=== PATIENT | male | born 1935 | race Caucasian/White ===

== ENCOUNTER 2018-09-28 14:05 | Inpatient (IN) | payer OTHER, MEDICARE ==
[2018-09-28] MEDS: ACETAMINOPHEN 325 MG TAB PO (14:53)
[2018-09-28 15:17] LABS: ADD MAN DIFF? NO
[2018-09-28 15:19] LABS: BASOPHIL # 0.1 10^3/ul (0.0-0.1); BASOPHILS % 0.6 % (0.0-2.0); EOSINOPHILS # 0.1 10^3/ul (0.0-0.5); EOSINOPHILS % 1.3 % (0.0-7.0); HEMATOCRIT 41.3 % (42.0-52.0); HEMOGLOBIN 13.1 g/dl (14.0-18.0); LYMPHOCYTES # 0.9 10^3/ul (0.8-2.9); LYMPHOCYTES % 10.3 % (15.0-51.0); MEAN CORPUSCULAR HEMOGLOBIN 27.2 pg (29.0-33.0); MEAN CORPUSCULAR HGB CONC 31.7 g/dl (32.0-37.0); MEAN CORPUSCULAR VOLUME 85.7 fl (82.0-101.0); MEAN PLATELET VOLUME 9.8 fl (7.4-10.4); MONOCYTE # 0.8 10^3/ul (0.3-0.9); MONOCYTES % 9.3 % (0.0-11.0); NEUTROPHIL # 6.7 10^3/ul (1.6-7.5); NEUTROPHILS % 78.1 % (39.0-77.0); PLATELET COUNT 201 10^3/UL (140-415); RED BLOOD COUNT 4.82 10^6/ul (4.70-6.10); RED CELL DISTRIBUTION WIDTH 14.1 % (11.5-14.5)
[2018-09-28 15:19] LABS: WHITE BLOOD COUNT 8.5 10^3/ul (4.8-10.8)
[2018-09-28] MEDS: PIPER-TAZO 3.375 GM IV (PMX) 100 ML IVPB (15:42)
[2018-09-28 15:45] LABS: ANION GAP 9 (5-13); BLOOD UREA NITROGEN 18 mg/dl (7-20); CALCIUM 9.2 mg/dl (8.4-10.2); CARBON DIOXIDE 27 mmol/L (21-31); CHLORIDE 104 mmol/L (97-110); CREATININE 1.05 mg/dl (0.61-1.24); GLUCOSE 146 mg/dl (70-220); POTASSIUM 3.9 mmol/L (3.5-5.1); SODIUM 140 mmol/L (135-144)
[2018-09-28 15:56] LABS: TROPONIN-I 0.015 ng/ml (0.000-0.120)
[2018-09-28] MEDS ORDERED: ONDANSETRON 4 MG INJ IV ×2 (16:00→18:00)
[2018-09-28] MEDS ORDERED: ACETAMINOPHEN 325 MG TAB PO (16:00)
[2018-09-28] MEDS: VANCOMYCIN 1 GM (PMX) 250 ML IVPB (16:10)
[2018-09-28] MEDS ORDERED: NACL 0.9% 3 ML SYG IV (18:00)
[2018-09-28] MEDS ORDERED: VANCOMYCIN IV PER PHARMACY XX (18:30)
[2018-09-28] MEDS ORDERED: VANCOMYCIN HCL 1.25 GM in SOD CHLORIDE 0.9% 250 ML IVPB (21:00)
[2018-09-28] MEDS: ATORVASTATIN 80 MG TAB PO (21:16)
[2018-09-28] MEDS: VANCOMYCIN 500 MG (PMX) 100 ML IVPB (21:17)
[2018-09-28] MEDS: HEPARIN 5,000 UNIT/1 ML VIAL SC (21:28)
[2018-09-28] MEDS: SACUBITRIL/VALSARTAN (49mg-51mg) TABLET PO (22:12)
[2018-09-28 22:48] LABS: CREATINE KINASE 110 IU/L (23-200)
[2018-09-28 23:01] LABS: CK INDEX 1.8; CK-MB 2.02 ng/ml (0.0-2.4); TROPONIN-I 0.024 ng/ml (0.000-0.120)
[2018-09-29 01:40] LABS: LACTIC ACID 0.8 mmol/L (0.5-2.0)
[2018-09-29 05:13] LABS: ADD MAN DIFF? NO
[2018-09-29 05:20] LABS: BASOPHIL # 0.1 10^3/ul (0.0-0.1); EOSINOPHILS # 0.3 10^3/ul (0.0-0.5); EOSINOPHILS % 4.2 % (0.0-7.0); HEMATOCRIT 39.4 % (42.0-52.0); HEMOGLOBIN 12.4 g/dl (14.0-18.0); LYMPHOCYTES # 1.1 10^3/ul (0.8-2.9); MEAN CORPUSCULAR HEMOGLOBIN 27.3 pg (29.0-33.0); MEAN CORPUSCULAR HGB CONC 31.5 g/dl (32.0-37.0); MEAN CORPUSCULAR VOLUME 86.6 fl (82.0-101.0); MEAN PLATELET VOLUME 10.3 fl (7.4-10.4); MONOCYTE # 0.8 10^3/ul (0.3-0.9); MONOCYTES % 10.9 % (0.0-11.0); NEUTROPHIL # 4.7 10^3/ul (1.6-7.5); NEUTROPHILS % 67.8 % (39.0-77.0); PLATELET COUNT 202 10^3/UL (140-415); RED BLOOD COUNT 4.55 10^6/ul (4.70-6.10); RED CELL DISTRIBUTION WIDTH 14.2 % (11.5-14.5)
[2018-09-29 05:20] LABS: WHITE BLOOD COUNT 6.9 10^3/ul (4.8-10.8)
[2018-09-29 05:31] LABS: HEMOGLOBIN A1C 6.9 % (0-5.9)
[2018-09-29 05:38] LABS: CREATINE KINASE 99 IU/L (23-200)
[2018-09-29 05:49] LABS: ALANINE AMINOTRANSFERASE 26 IU/L (13-69); ALBUMIN 3.6 g/dl (3.3-4.9); ALBUMIN/GLOBULIN RATIO 1.16; ALKALINE PHOSPHATASE 70 IU/L (42-121); ANION GAP 5 (5-13); ASPARTATE AMINO TRANSFERASE 24 IU/L (15-46); BILIRUBIN,INDIRECT 0.9 mg/dl (0-1.1); BILIRUBIN,TOTAL 0.9 mg/dl (0.2-1.3); BLOOD UREA NITROGEN 18 mg/dl (7-20); CALCIUM 9.1 mg/dl (8.4-10.2); CARBON DIOXIDE 27 mmol/L (21-31); CHLORIDE 107 mmol/L (97-110); CHOL/HDL RATIO 2.4 RATIO; CHOLESTEROL 99 mg/dl (100-200); CREATININE 1.06 mg/dl (0.61-1.24); GLUCOSE 129 mg/dl (70-220); HDL CHOLESTEROL 40 mg/dl (31-75); LDL CHOLESTEROL,CALCULATED 48 mg/dl; MAGNESIUM 2.3 mg/dl (1.7-2.5); PHOSPHORUS 4.7 mg/dl (2.5-4.9); POTASSIUM 3.9 mmol/L (3.5-5.1); SODIUM 139 mmol/L (135-144); TOTAL PROTEIN 6.7 g/dl (6.1-8.1); TRIGLYCERIDES 53 mg/dl (0-149)
[2018-09-29 05:52] LABS: CK INDEX 2.1; CK-MB 2.09 ng/ml (0.0-2.4); TROPONIN-I 0.015 ng/ml (0.000-0.120)
[2018-09-29] MEDS: HEPARIN 5,000 UNIT/1 ML VIAL SC ×3 (06:41→21:58)
[2018-09-29] MEDS: SACUBITRIL/VALSARTAN (49mg-51mg) TABLET PO ×2 (08:46→20:32)
[2018-09-29] MEDS: CLOPIDOGREL 75 MG TAB PO (08:46)
[2018-09-29] MEDS: ALBUTEROL/IPRATROPIUM (NEB) 3 ML AMP HHN (10:31)
[2018-09-29] MEDS: FUROSEMIDE 40 MG INJ IV (12:37)
[2018-09-29] MEDS: ATORVASTATIN 80 MG TAB PO (20:32)
[2018-09-29] MEDS: VANCOMYCIN HCL 1.25 GM in SOD CHLORIDE 0.9% 250 ML IVPB (20:32)
[2018-09-30] MEDS: ACETAMINOPHEN 325 MG TAB PO (03:13)
[2018-09-30] MEDS: HEPARIN 5,000 UNIT/1 ML VIAL SC ×3 (06:39→21:32)
[2018-09-30] MEDS: SACUBITRIL/VALSARTAN (49mg-51mg) TABLET PO ×2 (09:06→20:19)
[2018-09-30] MEDS: FUROSEMIDE 40 MG INJ IV (09:06)
[2018-09-30] MEDS: ATORVASTATIN 80 MG TAB PO (20:19)
[2018-09-30] MEDS: VANCOMYCIN HCL 1.25 GM in SOD CHLORIDE 0.9% 250 ML IVPB (20:19)
[2018-09-30] MEDS: COLCHICINE 0.6 MG TAB PO (20:19)
[2018-10-01] MEDS: ACETAMINOPHEN 325 MG TAB PO (05:47)
[2018-10-01] MEDS: HEPARIN 5,000 UNIT/1 ML VIAL SC ×3 (06:06→21:30)
[2018-10-01 06:08] LABS: ADD MAN DIFF? NO
[2018-10-01 06:20] LABS: WHITE BLOOD COUNT 7.7 10^3/ul (4.8-10.8)
[2018-10-01 06:20] LABS: BASOPHIL # 0.1 10^3/ul (0.0-0.1); BASOPHILS % 0.8 % (0.0-2.0); EOSINOPHILS # 0.3 10^3/ul (0.0-0.5); EOSINOPHILS % 3.4 % (0.0-7.0); HEMATOCRIT 43.2 % (42.0-52.0); HEMOGLOBIN 13.7 g/dl (14.0-18.0); LYMPHOCYTES # 1.4 10^3/ul (0.8-2.9); LYMPHOCYTES % 18.8 % (15.0-51.0); MEAN CORPUSCULAR HGB CONC 31.7 g/dl (32.0-37.0); MEAN CORPUSCULAR VOLUME 85.2 fl (82.0-101.0); MEAN PLATELET VOLUME 10.1 fl (7.4-10.4); MONOCYTE # 0.7 10^3/ul (0.3-0.9); MONOCYTES % 8.6 % (0.0-11.0); NEUTROPHIL # 5.2 10^3/ul (1.6-7.5); PLATELET COUNT 250 10^3/UL (140-415); RED BLOOD COUNT 5.07 10^6/ul (4.70-6.10)
[2018-10-01 06:30] LABS: INR 1.08; PROTIME 14.1 Sec (11.9-14.9); PT RATIO 1.1
[2018-10-01 06:52] LABS: B-TYPE NATRIURETIC PEPTIDE 1190 PG/ML (0-450)
[2018-10-01 06:57] LABS: ALANINE AMINOTRANSFERASE 31 IU/L (13-69); ALBUMIN 3.9 g/dl (3.3-4.9); ALBUMIN/GLOBULIN RATIO 1.25; ALKALINE PHOSPHATASE 82 IU/L (42-121); ANION GAP 9 (5-13); ASPARTATE AMINO TRANSFERASE 26 IU/L (15-46); BLOOD UREA NITROGEN 28 mg/dl (7-20); CARBON DIOXIDE 27 mmol/L (21-31); CHLORIDE 102 mmol/L (97-110); CREATININE 1.18 mg/dl (0.61-1.24); GLUCOSE 145 mg/dl (70-220); MAGNESIUM 2.3 mg/dl (1.7-2.5); POTASSIUM 3.5 mmol/L (3.5-5.1); SODIUM 138 mmol/L (135-144)
[2018-10-01] MEDS: COLCHICINE 0.6 MG TAB PO ×2 (08:21→20:24)
[2018-10-01] MEDS: SACUBITRIL/VALSARTAN (49mg-51mg) TABLET PO ×2 (08:22→20:24)
[2018-10-01] MEDS: FUROSEMIDE 40 MG INJ IV (08:22)
[2018-10-01] MEDS: POTASSIUM CHLORIDE (SR) 20 MEQ TAB PO (09:18)
[2018-10-01 09:45] LABS: URIC ACID 8.2 mg/dl (3.1-7.9)
[2018-10-01] MEDS: ATORVASTATIN 80 MG TAB PO (20:24)
[2018-10-02] MEDS: HEPARIN 5,000 UNIT/1 ML VIAL SC ×3 (05:14→20:12)
[2018-10-02 06:22] LABS: ADD MAN DIFF? NO
[2018-10-02 06:30] LABS: BASOPHIL # 0.1 10^3/ul (0.0-0.1); BASOPHILS % 1.3 % (0.0-2.0); EOSINOPHILS # 0.3 10^3/ul (0.0-0.5); EOSINOPHILS % 4.5 % (0.0-7.0); HEMATOCRIT 45.4 % (42.0-52.0); HEMOGLOBIN 14.2 g/dl (14.0-18.0); LYMPHOCYTES # 1.6 10^3/ul (0.8-2.9); LYMPHOCYTES % 24.5 % (15.0-51.0); MEAN CORPUSCULAR HEMOGLOBIN 26.8 pg (29.0-33.0); MEAN CORPUSCULAR HGB CONC 31.3 g/dl (32.0-37.0); MEAN CORPUSCULAR VOLUME 85.8 fl (82.0-101.0); MEAN PLATELET VOLUME 9.9 fl (7.4-10.4); MONOCYTE # 0.7 10^3/ul (0.3-0.9); MONOCYTES % 10.9 % (0.0-11.0); NEUTROPHIL # 3.7 10^3/ul (1.6-7.5); NEUTROPHILS % 58.3 % (39.0-77.0); PLATELET COUNT 266 10^3/UL (140-415); RED BLOOD COUNT 5.29 10^6/ul (4.70-6.10); RED CELL DISTRIBUTION WIDTH 14.2 % (11.5-14.5)
[2018-10-02 06:30] LABS: WHITE BLOOD COUNT 6.4 10^3/ul (4.8-10.8)
[2018-10-02 06:45] LABS: INR 1.03; PROTIME 13.6 Sec (11.9-14.9); PT RATIO 1.1
[2018-10-02] MEDS: SOD CHLORIDE 0.9% 500 ML IV (06:49)
[2018-10-02 06:56] LABS: ALANINE AMINOTRANSFERASE 34 IU/L (13-69); ALBUMIN 3.9 g/dl (3.3-4.9); ALBUMIN/GLOBULIN RATIO 1.14; ALKALINE PHOSPHATASE 85 IU/L (42-121); ANION GAP 10 (5-13); ASPARTATE AMINO TRANSFERASE 40 IU/L (15-46); BILIRUBIN,INDIRECT 0.8 mg/dl (0-1.1); BILIRUBIN,TOTAL 0.8 mg/dl (0.2-1.3); BLOOD UREA NITROGEN 30 mg/dl (7-20); CALCIUM 9.1 mg/dl (8.4-10.2); CARBON DIOXIDE 28 mmol/L (21-31); CHLORIDE 104 mmol/L (97-110); CREATININE 1.16 mg/dl (0.61-1.24); GLUCOSE 137 mg/dl (70-220); MAGNESIUM 2.5 mg/dl (1.7-2.5); POTASSIUM 4.4 mmol/L (3.5-5.1); SODIUM 142 mmol/L (135-144); TOTAL PROTEIN 7.3 g/dl (6.1-8.1)
[2018-10-02 06:57] LABS: B-TYPE NATRIURETIC PEPTIDE 774 PG/ML (0-450)
[2018-10-02 07:00] LABS: URIC ACID 9.2 mg/dl (3.1-7.9)
[2018-10-02] MEDS ORDERED: LIDOCAINE 1% (MDV) 20 ML INJ (07:07)
[2018-10-02] MEDS ORDERED: SOD CHLORIDE 0.9% 500 ML (07:07)
[2018-10-02] MEDS ORDERED: PROPOFOL 20 ML (07:22)
[2018-10-02] MEDS ORDERED: FENTAnyl 50 MCG/ML VIAL ×2 (07:22→08:54)
[2018-10-02] MEDS ORDERED: MIDAZOLAM 1 MG/ML 2 ML INJ ×2 (07:22→08:55)
[2018-10-02] MEDS: LIDOCAINE 1%/EPI 30 ML INJ INJ (07:30)
[2018-10-02] MEDS: POLYMYXIN/BACITRACIN 1L IRRIG IRR (07:30)
[2018-10-02] MEDS: CEFAZOLIN 2 GM/50 ML (PMX) 50 ML IVPB (07:30)
[2018-10-02] MEDS ORDERED: IODIXANOL LOCM 50 ML BTL ×2 (07:40→08:39)
[2018-10-02] MEDS ORDERED: MIDAZOLAM 1 MG/ML 2 ML INJ IV (10:00)
[2018-10-02] MEDS ORDERED: ONDANSETRON 4 MG INJ IV (10:00)
[2018-10-02] MEDS ORDERED: LABETALOL HCL 20MG INJ IV (10:00)
[2018-10-02] MEDS ORDERED: OXYCODONE/ACETAMINOPHEN (5/325) TAB PO (10:00)
[2018-10-02] MEDS ORDERED: DIPHENHYDRAMINE 50 MG INJ IV (10:00)
[2018-10-02] MEDS ORDERED: EPHEDrine 25 MG/5 ML SYG IV (10:00)
[2018-10-02] MEDS ORDERED: METOCLOPRAMIDE 10 MG INJ IV (10:00)
[2018-10-02] MEDS ORDERED: hydrALAzine 20 MG INJ IV (10:00)
[2018-10-02] MEDS ORDERED: FENTAnyl 50 MCG/ML VIAL IV ×3 (10:00)
[2018-10-02] MEDS ORDERED: MEPERIDINE 25 MG INJ IV (10:00)
[2018-10-02] MEDS ORDERED: morphine 2 MG INJ IV (10:00)
[2018-10-02] MEDS: COLCHICINE 0.6 MG TAB PO ×2 (10:36→20:05)
[2018-10-02] MEDS: SACUBITRIL/VALSARTAN (49mg-51mg) TABLET PO ×2 (10:37→20:05)
[2018-10-02] MEDS: FUROSEMIDE 40 MG INJ IV (10:38)
[2018-10-02] MEDS: ALBUTEROL/IPRATROPIUM (NEB) 3 ML AMP HHN (13:09)
[2018-10-02] MEDS: OXYCODONE/ACETAMINOPHEN (5/325) TAB PO (13:24)
[2018-10-02] MEDS: CEFAZOLIN 1 GM/50 ML (PMX) 50 ML IVPB ×2 (14:17→21:07)
[2018-10-02] MEDS: ATORVASTATIN 80 MG TAB PO (20:05)
[2018-10-03] MEDS: CEFAZOLIN 1 GM/50 ML (PMX) 50 ML IVPB (05:29)
[2018-10-03 05:58] LABS: ADD MAN DIFF? NO; BASOPHIL # 0.1 10^3/ul (0.0-0.1); BASOPHILS % 0.7 % (0.0-2.0); EOSINOPHILS # 0.2 10^3/ul (0.0-0.5); HEMATOCRIT 44.6 % (42.0-52.0); HEMOGLOBIN 14.2 g/dl (14.0-18.0); LYMPHOCYTES % 11.2 % (15.0-51.0); MEAN CORPUSCULAR HEMOGLOBIN 27.2 pg (29.0-33.0); MEAN CORPUSCULAR HGB CONC 31.8 g/dl (32.0-37.0); MEAN CORPUSCULAR VOLUME 85.3 fl (82.0-101.0); MEAN PLATELET VOLUME 9.6 fl (7.4-10.4); MONOCYTE # 0.8 10^3/ul (0.3-0.9); MONOCYTES % 9.4 % (0.0-11.0); NEUTROPHIL # 6.7 10^3/ul (1.6-7.5); NEUTROPHILS % 76.1 % (39.0-77.0); PLATELET COUNT 226 10^3/UL (140-415); RED BLOOD COUNT 5.23 10^6/ul (4.70-6.10); RED CELL DISTRIBUTION WIDTH 14.1 % (11.5-14.5)
[2018-10-03 05:58] LABS: WHITE BLOOD COUNT 8.8 10^3/ul (4.8-10.8)
[2018-10-03 06:50] LABS: B-TYPE NATRIURETIC PEPTIDE 1320 PG/ML (0-450)
[2018-10-03 06:52] LABS: ALANINE AMINOTRANSFERASE 33 IU/L (13-69); ALBUMIN 3.8 g/dl (3.3-4.9); ALBUMIN/GLOBULIN RATIO 1.18; ALKALINE PHOSPHATASE 92 IU/L (42-121); ANION GAP 13 (5-13); ASPARTATE AMINO TRANSFERASE 44 IU/L (15-46); BILIRUBIN,INDIRECT 0.6 mg/dl (0-1.1); BILIRUBIN,TOTAL 0.6 mg/dl (0.2-1.3); BLOOD UREA NITROGEN 21 mg/dl (7-20); CALCIUM 8.8 mg/dl (8.4-10.2); CARBON DIOXIDE 27 mmol/L (21-31); CHLORIDE 103 mmol/L (97-110); CREATININE 0.95 mg/dl (0.61-1.24); GLUCOSE 148 mg/dl (70-220); MAGNESIUM 2.3 mg/dl (1.7-2.5); POTASSIUM 3.7 mmol/L (3.5-5.1); SODIUM 143 mmol/L (135-144)
[2018-10-03] MEDS: ALLOPURINOL 300 MG TAB PO (08:31)
[2018-10-03] MEDS: COLCHICINE 0.6 MG TAB PO ×2 (08:31→20:33)
[2018-10-03] MEDS: SACUBITRIL/VALSARTAN (49mg-51mg) TABLET PO ×2 (08:31→20:34)
[2018-10-03] MEDS: FUROSEMIDE 40 MG INJ IV (08:32)
[2018-10-03] MEDS: METOPROLOL (XL) 25 MG TAB PO (08:32)
[2018-10-03] MEDS: HEPARIN 5,000 UNIT/1 ML VIAL SC ×2 (08:41→21:07)
[2018-10-03] MEDS: DIGOXIN 0.125 MG TAB PO (12:56)
[2018-10-03] MEDS: ATORVASTATIN 80 MG TAB PO (20:33)
[2018-10-04] MEDS: COLCHICINE 0.6 MG TAB PO (08:19)
[2018-10-04] MEDS: ALLOPURINOL 300 MG TAB PO (08:19)
[2018-10-04] MEDS: SACUBITRIL/VALSARTAN (49mg-51mg) TABLET PO (08:20)
[2018-10-04] MEDS: METOPROLOL (XL) 25 MG TAB PO (08:22)
[2018-10-04] MEDS: FUROSEMIDE 40 MG INJ IV (08:22)
[2018-10-04] MEDS: HEPARIN 5,000 UNIT/1 ML VIAL SC (08:28)
[2018-10-04] MEDS ORDERED: POTASSIUM CHLORIDE (SR) 20 MEQ TAB PO (08:49)
== END 2018-10-04 14:01 | disposition home or self-care (01) | DRG 226 ==
LOC: FTE 14:05 → 6WM 15:55
PROC: 0JH609Z Insertion of Cardiac Resynchronization Defibrillator Pulse Generator into Chest Subcutaneous Tissue and Fascia, Open Approach (ICD-10-PCS; principal; 2018-10-02 07:30)
PROC: 02HL3KZ Insertion of Defibrillator Lead into Left Ventricle, Percutaneous Approach (ICD-10-PCS; 2018-10-02 07:30)
PROC: 02HK3KZ Insertion of Defibrillator Lead into Right Ventricle, Percutaneous Approach (ICD-10-PCS; 2018-10-02 07:30)
PROC: 02H63KZ Insertion of Defibrillator Lead into Right Atrium, Percutaneous Approach (ICD-10-PCS; 2018-10-02 07:30)
DX: I45.3 Trifascicular block (principal); I50.23 Acute on chronic systolic (congestive) heart failure; L03.115 Cellulitis of right lower limb; I11.0 Hypertensive heart disease with heart failure; I25.10 Atherosclerotic heart disease of native coronary artery without angina pectoris; E78.5 Hyperlipidemia, unspecified; I25.5 Ischemic cardiomyopathy; J44.9 Chronic obstructive pulmonary disease, unspecified; M10.9 Gout, unspecified; I25.2 Old myocardial infarction; Z95.1 Presence of aortocoronary bypass graft; Z95.5 Presence of coronary angioplasty implant and graft; Z91.81 History of falling; Z79.02 Long term (current) use of antithrombotics/antiplatelets
CPT/HCPCS: 33249; 36415; 71045; 73630; 80048; 80053; 80061; 82550; 82553; 83036; 83605; 83735; 83880; 84100; 84443; 84484; 84560; 85025; 85610; 87040-91; 93005; 93306; 94640; 94664; 96374; 97116; 97161; 97530; 99285-25